=== PATIENT | male | born 1995 | race Caucasian/White ===

== ENCOUNTER 2019-08-29 21:31 | Emergency (ER) | payer OTHER, SELFPAY ==
[2019-08-29 21:32] VITALS: BP 131/83; PULSE 95; RESP 14; TEMP 37.2; O2SAT 99
--- NOTE | 2019-08-29 22:59 | ED.MALEGU ---
HPI - Male Genitourinary General Chief complaint: Urogenital-Male Stated complaint: bump on left testicle Time Seen by Provider: 08/29/19 22:00 History of Present Illness HPI Narrative: Patient is a 24-year-old male who presents to the ER with concerns about a bump to his left scrotum. It is white and firm. Showed up about 1 week ago. No drainage. No tenderness or erythema. Has not had similar symptoms in the past. No pain to the testicle itself. Denies any urinary frequency or urgency. No urethral discharge. Related Data Allergies Allergy/AdvReac Type Severity Reaction Status Date / Time No Known Allergies Allergy Mild Verified 08/29/19 21:50 Review of Systems Gastrointestinal: Gastrointestinal: Denies abdominal pain, Denies nausea and Denies vomiting Genitourinary: Genitourinary: Denies genital pain, Denies dysuria, Denies penile discharge, Denies scrotal swelling, Reports testicular mass (Scrotal not testicular) and Denies urinary frequency PMFSH Past Medical History Medical History (Updated 08/29/19 @ 23:03 by Arnulfo Srivastava MD) No pertinent past medical history Surgical History Surgical History (Updated 08/29/19 @ 23:01 by Arnulfo Srivastava MD) No pertinent past surgical history Family History Family History (Updated 07/22/16 @ 23:56 by DOCTOR UNKNOWN) Grandparent Family history of suicide, Onset Age: 21 Social History Social History Smoking status: Never smoker Alcohol intake: never Gender identity (if verbalized by the patient): Female Exam Narrative: Exam Narrative: GENERAL: Well-appearing, well-nourished, and in no acute distress. HEAD: Normocephalic, atraumatic. : Normal appearing penis is circumcised. On the scrotum near the penile shaft left side there is 1/2 cm white bump with hair around it. Nontender. No cellulitis. Seems to be consistent with sebaceous cyst or ingrown hair. Testicles nontender. EXTREMITIES: Normal range of motion. No edema. NEURO: Alert and oriented x3. PSYCH: Normal mood and affect. Course Course Emergency Course: No additional intervention. Patient educated about his skin issue. Vital Signs Vital signs: Vital Signs Temperature 99.0 F 08/29/19 21:32 Pulse Rate 95 05/14/20 21:32 Respiratory Rate 14 08/29/19 21:32 Blood Pressure 131/83 08/29/19 21:32 Pulse Oximetry 99 08/29/19 21:32 Temperature 99.0 F 08/29/19 21:32 Pulse Rate 95 08/29/19 21:32 Respiratory Rate 14 08/29/19 21:32 Blood Pressure 131/83 08/29/19 21:32 Pulse Oximetry 99 08/29/19 21:32 Discharge Plan Discharge Clinical Impression: Sebaceous cyst Patient Disposition: Home, Self-Care Condition: Stable Instructions: Cyst (ED) Additional Instructions: Return to the ER if you have burning urination, you have discharge from your urethra, your cyst is red and hot and swollen, or you have additional concerns. Prescriptions: No Action ibuprofen [Motrin IB] 200 mg tablet 600 mg PO Q6H PRN (Reason: pain) 5 Days Qty: 30 RF: 0 Follow-up/Referrals: Jens Brown, [Primary Care Provider] -
[2019-08-29 23:02] VITALS: BP 122/80; PULSE 80; RESP 20; TEMP 36.7; O2SAT 99
== END 2019-08-29 23:10 | disposition home or self-care (01) ==
PROVIDERS: Emergency Provider Emergency Medicine; PCP Internal Medicine
DX: L72.3 Sebaceous cyst (principal)
CPT/HCPCS: 99281

== ENCOUNTER 2019-10-30 18:16 | Emergency (ER) | payer OTHER, SELFPAY ==
[2019-10-30 18:25] VITALS: BP 152/86; PULSE 81; RESP 16; TEMP 37.3; O2SAT 99
--- NOTE | 2019-10-30 18:28 | ED.GENADULT ---
HPI - General Adult General Chief complaint: Unspecified Stated complaint: Follow Up Time Seen by Provider: 10/30/19 18:28 Source: patient and RN notes reviewed Mode of arrival: ambulatory Limitations: no limitations History of Present Illness HPI narrative: 24-year-old male presents with resolved abdominal pain and nausea for the past 7 days. No treatment. Ridge says he has been off work for 1.5-2 weeks and needs a return to work statement. Ridge says he had diffused abdominal pain with nausea and without vomiting or diarrhea. No abdominal pain or cramping. No exacerbating factors. LBM 10/29/19 normal per Ridge. Denies fever or chills. Denies headache, dizziness, back pain, dysuria, and blood in stool. The patient reports he have not been diagnosed with COVID-19. The patient reports he is not waiting for the results of a COVID-19 lab test. The patient reports he do not have fever, chills, weakness, fatigue, or myalgia. The patient reports he do not have a new or worsening cough or shortness of breath. Denies chest pain. The patient reports he do not have any rhinorrhea, congestion, sore throat, nausea, vomiting, abdominal pain, and diarrhea. Tolerating po intake well. Denies recent traveling. Denies concerns for COVID-19 or exposures been home since [id number] order except for essential household needs, working, and return home. At this time, patient is not suspected of having COVID-19. Some parts of this dictation were generated by voice recognition software and may contain typographical and/or grammatical inaccuracies. Related Data Allergies Allergy/AdvReac Type Severity Reaction Status Date / Time No Known Allergies Allergy Mild Verified 09/20/19 13:29 Review of Systems Review of Systems: Narrative: CONSTITUTIONAL: Denies fever, chills, sweats. EYES: Denies visual changes, redness, discharge. ENT: Denies rhinorrhea, congestion, sore throat, otalgia. CARDIOVASCULAR: Denies chest pain, palpitations, edema. RESPIRATORY: Denies dyspnea, wheezing, cough. GASTROINTESTINAL: Denies abdominal pain, vomiting, diarrhea, nausea, and decrease appetite. GENITOURINARY: Denies dysuria, hematuria, abnormal discharge. SKIN: Denies rash or itching. MUSCULOSKELETAL: Denies acute back pain, joint pain, or myalgia. NEUROLOGIC: Denies numbness or focal weakness. PSYCHIATRIC: Denies anxiety or depression. All other systems reviewed are negative, except as documented in HPI and below. [facility] Past Medical History Medical History (Updated 10/30/19 @ 19:43 by JOHN Smith) Asthma Encounter for tobacco use cessation counseling Migraine Nocturnal leg cramps Shoulder fracture, left Wrist fracture, right X2 Surgical History Surgical History No pertinent past surgical history Family History Family History (Updated 10/30/19 @ 19:37 by JOHN Smith) Grandparent Family history of suicide, Onset Age: 21 Father Alive and well Mother Hypertension Social History Social History Smoking packs per day: 0.75 Smoking cigarettes per day: 15.0 Years smoked: 7 Smoking pack-years: 5.25 Smoking status: Current every day smoker Alcohol intake: never Substance use: current Substance use type: marijuana Gender identity (if verbalized by the patient): Male Comments At time of signature, I have reviewed and agree with nursing past medical, surgical, social, and family history. Please see nursing chart for further information. There is no relevant family history pertinent to the presenting complaint. Exam Narrative: Exam Narrative: GENERAL: This is a well-nourished, well-developed patient, in no apparent distress. Talks in full sentences without deficits and ambulates with steady gait without dyspnea. HEAD: normocephalic, atraumatic. EARS: External ears normal, auditory ca
== END 2019-10-30 18:47 | disposition home or self-care (01) ==
PROVIDERS: Emergency Provider Nurse Practitioner Family; PCP Internal Medicine
DX: R11.0 Nausea (principal); F17.210 Nicotine dependence, cigarettes, uncomplicated; J45.909 Unspecified asthma, uncomplicated
CPT/HCPCS: 99213; G0463

== ENCOUNTER 2023-12-13 09:57 | Emergency (ER) | payer BC, SELFPAY ==
[2023-12-13 10:09] VITALS: BP 152/85; PULSE 62; RESP 16; TEMP 37.6; O2SAT 98
--- NOTE | 2023-12-13 10:11 | ED.URI ---
HPI - URI/Sore Throat General Chief Complaint: Upper Respiratory Infection Stated Complaint: + home COVID, needs info for work Time Seen by Provider: 12/13/23 10:01 Source: patient Mode of arrival: ambulatory Limitations: no limitations History of Present Illness HPI Narrative: Ridge is a 28-year-old male patient presenting to the clinic today with complaints of runny nose, nonproductive cough, headache, congestion, sore throat, body aches, and overall fatigue. He reports symptoms started yesterday. Tested himself this morning for COVID and was positive. Is needing a work note. He denies any chest pain or shortness of breath. MD elicited complaint: cough, sore throat, nasal congestion and other (Body aches) Related Data Allergies Allergy/AdvReac Type Severity Reaction Status Date / Time No Known Allergies Allergy Mild Verified 12/13/23 10:01 Review of Systems Review of Systems: Pertinent positives per HPI. Patient denies any fever, rash, visual changes, dizziness, shortness of breath, chest pain, palpitations, nausea, vomiting, diarrhea, constipation, abdominal pain, or any urinary issues. [facility] Past Medical History Medical History (Updated 12/13/23 @ 10:35 by Henrry Ashley APRN) Asthma Encounter for tobacco use cessation counseling Migraine Nocturnal leg cramps Shoulder fracture, left Wrist fracture, right X2 Surgical History Surgical History No pertinent past surgical history Family History Family History Grandparent Family history of suicide, Onset Age: 21 Father Alive and well Mother Hypertension Social History Social History Smoking packs per day: 0.75 Smoking cigarettes per day: 15.0 Years smoked: 7 Smoking pack-years: 5.25 Smoking status: Current every day smoker Alcohol intake: never Substance use: current Substance use type: marijuana Gender identity (if verbalized by the patient): Male Comments At the time of my signature, I reviewed and agree with the nursing past medical, surgical, social, and family history. There is no relevant family history pertinent to the patient complaint. Exam Narrative: General: Well-developed, well nourished, in no apparent distress Head: Normocephalic, atraumatic Eyes: Pupils equally round and reactive to light bilaterally, EOM intact, sclera and conjunctive clear, no discharge, lids normal Ears: TMs intact and congested, ear canals clear, no drainage, grossly hearing normal. Nose: Nares patent, clear nasal discharge, no inflammation, no sinus tenderness. Mouth: Oral pharynx without lesions or masses, good dentition, MMM. Neck: Supple, trachea midline, no enlargement of anterior or posterior cervical nodes, no thyroid masses or goiter palpable. Cardio: Regular rate and rhythm, s1 and s2 normal, no murmur appreciated. Resp: Clear to auscultation bilaterally, no rhonchi, rales, wheezing or rubs Course Course Emergency Course: Portions of this record may have been created with voice recognition software. Level of Care: Express Care Visit Vital Signs Vital signs: Vital Signs Temperature 37.6 C 12/13/23 10:09 Pulse Rate 62 12/13/23 10:09 Respiratory Rate 16 12/13/23 10:09 Blood Pressure 152/85 H 12/13/23 10:09 Pulse Oximetry 98 12/13/23 10:09 Oxygen Delivery Room Air 12/13/23 10:09 Temperature 37.6 C 12/13/23 10:09 Pulse Rate 62 12/13/23 10:09 Respiratory Rate 16 12/13/23 10:09 Blood Pressure 152/85 H 12/13/23 10:09 Pulse Oximetry 98 12/13/23 10:09 Oxygen Delivery Room Air 12/13/23 10:09 Vital signs reviewed MDM - URI/Sore Throat MDM Narrative Medical decision making narrative: At the time of visit patient is resting comfortably on the exam table. Patient appears to be nontoxic
== END 2023-12-13 10:40 | disposition home or self-care (01) ==
PROVIDERS: Emergency Provider Nurse Practitioner Family; PCP Physician Assistant
DX: B34.9 Viral infection, unspecified (principal); J06.9 Acute upper respiratory infection, unspecified; J02.9 Acute pharyngitis, unspecified; F17.210 Nicotine dependence, cigarettes, uncomplicated; F12.90 Cannabis use, unspecified, uncomplicated; J45.909 Unspecified asthma, uncomplicated
CPT/HCPCS: 87426; 99213; G0463

== ENCOUNTER 2024-05-04 08:21 | Emergency (ER) | payer BC, SELFPAY ==
[2024-05-04 08:30] VITALS: BP 156/78; PULSE 75; RESP 14; TEMP 37.3; O2SAT 99
--- NOTE | 2024-05-04 08:46 | ED_ITS ---
HPI - Eye Problem General Stated complaint: Right Eye Irritation Time Seen by Provider: 05/04/24 08:40 Source: patient Mode of arrival: ambulatory Limitations: no limitations History of Present Illness HPI Narrative: Ridge is a 28-year-old male patient presenting to the clinic today with complaints of right eye irritation. He reports he woke up this morning and felt that his eye was swollen any had some yellow crusting. States that a co-worker had pinkeye and he was around that person. States felt like his eye fell heavy last night. Denies any known foreign body. Denies any visual changes. Related Data Allergies Allergy/AdvReac Type Severity Reaction Status Date / Time No Known Allergies Allergy Mild Verified 05/04/24 08:49 Review of Systems Review of Systems: Pertinent positives per HPI. Patient denies any fever, chills, rash, headache, visual changes, dizziness, cough, runny nose, sore throat, shortness of breath, chest pain, palpitations, nausea, vomiting, diarrhea, constipation, abdominal pain, or any urinary issues. PMFSH Past Medical History Medical History Wrist fracture, right X2 Shoulder fracture, left Encounter for tobacco use cessation counseling Nocturnal leg cramps Migraine Asthma Surgical History Surgical History No pertinent past surgical history Family History Family History Grandparent Family history of suicide, Onset Age: 21 Father Alive and well Mother Hypertension Social History Social History Smoking packs per day: 0.75 Smoking cigarettes per day: 15.0 Years smoked: 7 Smoking pack-years: 5.25 Smoking status: Current every day smoker Alcohol intake: never Substance use: current Substance use type: marijuana Gender identity (if verbalized by the patient): Male Comments At the time of my signature, I reviewed and agree with the nursing past medical, surgical, social, and family history. There is no relevant family history pertinent to the patient complaint. Exam Narrative: General: Well-developed, well nourished, in no apparent distress Head: Normocephalic, atraumatic Eyes: Pupils equally round and reactive to light bilaterally, EOM intact, left sclera and conjunctive clear, no discharge, lids normal, right sclera and conjunctiva mildly injected, yellow crusting discharge, lids mildly swollen Ears: TMs intact and clear, ear canals clear, no drainage, grossly hearing normal. Nose: Nares patent, no discharge, no inflammation, no sinus tenderness. Mouth: Oropharynx without lesions or masses, good dentition, MMM. Neck: Supple, trachea midline, no enlargement of anterior or posterior cervical nodes, no thyroid masses or goiter palpable. Cardio: Regular rate and rhythm, s1 and s2 normal, no murmur appreciated. Resp: Clear to auscultation bilaterally anteriorly and posteriorly, no rhonchi, rales, wheezing or rubs Course Course Emergency Course: Portions of this record may have been created with voice recognition software. Level of Care: Express Care Visit Vital Signs Vital signs: Vital Signs Temperature 37.3 C 05/04/24 08:30 Pulse Rate 75 05/04/24 08:30 Respiratory Rate 14 05/04/24 08:30 Blood Pressure 156/78 H 05/04/24 08:30 Pulse Oximetry 99 05/04/24 08:30 Oxygen Delivery Room Air 05/04/24 08:30 Temperature 37.3 C 05/04/24 08:30 Pulse Rate 75 05/04/24 08:30 Respiratory Rate 14 05/04/24 08:30 Blood Pressure 156/78 H 05/04/24 08:30 Pulse Oximetry 99 05/04/24 08:30 Oxygen Delivery Room Air 05/04/24 08:30 Vital signs reviewed MDM - Eye Problem MDM Narrative Medical decision making narrative: At the time of visit patient is resting comfortably on the exam table. Patient appears to be nontoxic. Plan: I suspect patient has conjunctivitis of the right eye. Prescription for tobramycin eyedrops was sent to the pharmacy. Supportive measures were discussed with the patient and they voiced understanding discharge instructions and agrees to treatment plan. Return precautions reviewed Differential Diagnosis Differential diagnosis: Likely corneal abrasion, conjunctivitis, acute iritis, hyphema, periorbital cellulitis, subconjunctival hemorrhage, glaucoma, corneal ulcer and ruptured globe Discharge Plan Discharge Clinical Impression: Acute conjunctivitis of right eye Patient Disposition: Home, Self-Care Condition: Stable Instructions: Antibiotic Form, Conjunctivitis (ED) Additional Instructions: Conjunctivitis is considered contagious for 24 hours while on the antibiotic. Practice good hand washing techniques Avoid touching eyes Instill eyedrops as prescribed May use warm moist washcloth to help remove eye discharge If eyes are matted shut-do not pry eyes open-use a warm moist cloth to loosen matting and wipe matter away from eye May take Tylenol/Motrin as needed for pain or fever May take Benadryl as needed for itching Follow-up with your PCP in 3-5 days if symptoms persist or sooner if they worsen Go to the emergency room if you develop any fever that is not controlled by Tylenol or Motrin, loss of vision, eye pain, increase eye swelling,visual changes, headache, confusion, lethargy, weakness, chest pain, or shortness of breath. Patient Language: Bulgarian Prescriptions: New tobramycin 0.3 % drops 1 drp RIGHT EYE Q4H 7 Days Qty: 5 0RF No Action albuterol sulfate 90 mcg/actuation HFA aerosol inhaler 2 puff inhalation Q4-6H PRN (Reason: shortness of breath or wheezing) 30 Days Qty: 8.5 0RF Follow-up/Referrals: Dinah,Jonny Blake PA-C [Primary Care Provider] - Stand Alone Forms: Work/School Release IP Time of Disposition: 08:47 Quality NIHSS Nursing Documentation ED NIHSS nursing documentation: reviewed/agree
== END 2024-05-04 08:53 | disposition home or self-care (01) ==
PROVIDERS: Emergency Provider Nurse Practitioner Family; PCP Physician Assistant
DX: H10.31 Unspecified acute conjunctivitis, right eye (principal); J45.909 Unspecified asthma, uncomplicated; F17.210 Nicotine dependence, cigarettes, uncomplicated; F12.90 Cannabis use, unspecified, uncomplicated
CPT/HCPCS: 99213; G0463